=== PATIENT | male | born 1945 | race Caucasian/White ===

== ENCOUNTER 2023-01-15 09:24 | Outpatient (CLI) | payer OTHER | END 2023-01-15 23:59 | disposition home or self-care (01) | LOC: RAD 09:24 | PROVIDERS: ATTEND Chiropractor | DX: M47.812 Spondylosis without myelopathy or radiculopathy, cervical region (principal) | CPT/HCPCS: 72040 ==

== ENCOUNTER 2025-02-12 12:00 | Outpatient (CLI) | payer OTHER ==
--- NOTE | 2025-02-13 09:18 | CARDIOLOGY REPORT ---
APPROVED REPORT EXAM: Comprehensive 2D, Doppler, and color-flow Echocardiogram. Patient Location: OUT-PATIENT Blood Pressure: 120/73 mmHg Heart Rate: 77 bpm Rhythm: SINUS Indications CORONARY ARTERY DISEASE [employer]st: none Previous echo: none 2D Dimensions RVDd 4.4 cm IVSd 1.0 (0.7-1.1cm) LVDd 4.6 cm PWd 1.2 (0.7-1.1cm) IVSs 1.7 (0.8-1.2cm) LVDs 2.8 (2.5-4.0cm) PWs 1.7 (0.8-1.2cm) LVOT Diameter 2.13 (1.8-2.4cm) LVEF(%) 69.7 (>50%) Ao Asc Diam. 3.65 cm IVC 20.91 mm FS (%) 39.2 % SV 67.2 ml M-Mode Dimensions Left Atrium(MM) 4.31 (2.5-4.0cm) IVSd 0.77 (0.7-1.1cm) LVDd 5.14 (4.0-5.6cm) Aortic Root 4.01 (2.2-3.7cm) PWd 1.16 (0.7-1.1cm) Aortic Cusp Exc 2.36 (1.5-2.0cm) IVSs 1.52 cm MV EPSS 0.2 (<0.5cm) LVDs 2.94 (2.0-3.8cm) FS (%) 43 % PWs 1.81 cm ESV(Teich) 33.4 ml LVEF(%) 73 (>50%) Aortic Valve AoV Peak Diaz. 166.5 cm/s AoV VTI 37.1 cm AO Peak GR. 11.1 mmHg AO Mean GR. 7 mmHg LVOT VTI 23.78 cm LVOT Peak Diaz. 103.8 cm/s JAMES (VMAX) 2.21 cm2 JAMES (VTI) 2.27 cm2 Mitral Valve MV E Velocity 105.0 cm/s MV DECEL TIME 181 ms MV A Velocity 80.0 cm/s MV PHT 58 ms E/A Ratio 1.3 MVA (PHT) 3.80 cm2 TDI E/Medial E' 12.5 Tricuspid Valve TR P. Velocity 284 cm/s RAP ESTIMATE 5 mmHg TR Peak Gr. 32 mmHg RVSP 37 mmHg Pulmonary Vein S2 Velocity 75.93 cm/s PVa Duration 106 msec LEFT VENTRICLE Normal LV size and wall thickness. Overall systolic function is normal. There is severe LV systolic dysfunction present. Overall estimated LVEF is about 65-70%. GLS = -13.6%. RIGHT VENTRICLE RV is moderately dilated with normal systolic function. RVSP is estimated at 37 mmHg. ATRIA LA is mildly dilated. RA appears mildly dilated. AORTIC VALVE Trileaflet AV appears mildly sclerotic without stenosis or insufficiency. MITRAL VALVE Mild MV annular calcification without stenosis. Trace regurgitation. TRICUSPID VALVE TV appears structurally normal with trace regurgitation. PULMONIC VALVE Normal PV without stenosis, physiologic insufficiency. GREAT VESSELS Aortic root is dilated. The ascending aorta is normal in size. IVC is upper limit normal in size and collapses greater than 50% with inspiration. PERICARDIUM Normal pericardium. No effusion. Other Information Study Quality: Adequate Conclusion There is severe LV systolic dysfunction present. Overall estimated LVEF is about 65-70%. GLS = -13.6%. Normal LV size and wall thickness. Overall systolic function is normal. RV is moderately dilated with normal systolic function. RVSP is estimated at 37 mmHg. Trileaflet AV appears mildly sclerotic without stenosis or insufficiency. Mild MV annular calcification without stenosis. Trace regurgitation. TV appears structurally normal with trace regurgitation. Normal PV without stenosis, physiologic insufficiency. Normal pericardium. No effusion.
== END 2025-02-12 23:59 | disposition home or self-care (01) ==
LOC: CARD DIAG 12:00
PROVIDERS: ATTEND Chiropractor
DX: I08.8 Other rheumatic multiple valve diseases (principal); I10 Essential (primary) hypertension
CPT/HCPCS: 93306